=== PATIENT | female | born 1970 | race Caucasian/White ===

== ENCOUNTER 2017-10-19 17:54 | Emergency (ER) | payer SELFPAY ==
--- NOTE | 2017-10-19 20:56 | RAD ---
RIGHT HAND 4 VIEWS: Date: 10/19/17 HISTORY: Fall. Pain. COMPARISON: None. FINDINGS: Joint spaces are preserved. No fracture. No cortical irregularity or periosteal reaction. IMPRESSION: Unremarkable right hand. POS: [facility]
--- NOTE | 2017-10-19 20:58 | RAD ---
3 VIEWS LEFT HAND: Date: 10/19/17 HISTORY: Pain. Fall. COMPARISON: None. FINDINGS: No fracture. No cortical irregularity. No periosteal reaction. IMPRESSION: Unremarkable 3 views left hand. POS: [facility]
== END 2017-10-19 21:27 | disposition home or self-care (01) ==
LOC: ERS 17:54
DX: G56.01 Carpal tunnel syndrome, right upper limb (principal); F17.210 Nicotine dependence, cigarettes, uncomplicated
CPT/HCPCS: 99406